=== PATIENT | male | born 1995 | race Caucasian/White ===

== ENCOUNTER 2021-12-21 12:39 | Emergency (ER) | payer OTHER, SELFPAY ==
--- NOTE | 2021-12-21 12:40 | ED.ABDPAIN ---
HPI - Abdominal Pain General Chief Complaint: Abdominal Pain Stated Complaint: Sever Abdo pain Time Seen by Provider: 12/21/21 12:41 Source: patient, family and RN notes reviewed History of Present Illness HPI narrative: Patient is a 26-year-old male who presents the urgent care with his girlfriend with complaints of severe lower abdominal pain that started 2 hours ago. Patient states that it has let up a lot since it first started . Patient states that he has had this in the past which resolved with Pepto. Patient states he did take Pepto without any relief. Patient states he does have issues with constipation and did take an enema and had a bowel movement this morning. Patient ate a cheese [place] this morning without any difficulty. Denies of any vomiting. States that he was feeling nauseous at first but denies of nausea at this time. Patient states that pain is worse when lying flat. No other acute complaints. Patient aware of the plan of care. Some parts of this dictation were generated by voice recognition software and may contain typographical and/or grammatical inaccuracies. Related Data Home Medications Medication Instructions Recorded Confirmed No Home Medications 12/21/21 12/21/21 Allergies Allergy/AdvReac Type Severity Reaction Status Date / Time No Known Allergies Allergy Verified 12/21/21 13:01 Review of Systems Review of Systems: CONSTITUTIONAL: Denies fever, chills, or sweats. EYES: Denies visual changes, redness, or discharge. ENT: Denies rhinorrhea, congestion, sore throat, or otalgia. CARDIOVASCULAR: Denies chest pain, palpitations, or edema. RESPIRATORY: Denies cough or dyspnea. GASTROINTESTINAL: Reports of severe lower abdominal pain GENITOURINARY: Denies dysuria or hematuria. SKIN: Denies rash or itching. MUSCULOSKELETAL: Denies back pain, joint pain, or myalgia. NEUROLOGIC: Denies headache, numbness, or weakness. All other systems reviewed are negative, except as documented in HPI. PMFSH Comments At the time of my signature, I reviewed and agree with the nursing past medical, surgical, social, and family history. There is no relevant family history pertinent to the patient complaint. Exam Narrative: GENERAL: This is a well-nourished, well-developed patient, in no apparent distress. HEAD: normocephalic, atraumatic. EYES: PERRL. Sclera clear/white. Vision is grossly intact. EARS: External ears normal, auditory canals clear and without drainage, TMs normal without perforation. Hearing grossly intact. NOSE: External nose normal with no obvious nasal discharge, nares without redness, no rhinorrhea. THROAT: Mucous membranes moist, posterior pharynx clear. NECK: Neck supple, non-tender without lymphadenopathy, masses or thyromegaly. CARDIOVASCULAR: Regular rate and rhythm without murmurs, gallops, or rubs. RESPIRATORY: Clear to auscultation. Breath sounds equal bilaterally. No wheezes, rales, or rhonchi. GASTROINTESTINAL: Abdomen soft, non-tender, nondistended. Bowel sounds are active. No hepato-splenomegaly, or palpable masses. No guarding. SKIN: warm, intact with no suspicious lesions or rash, good texture and turgor. NEURO: awake, alert, and oriented to person, place and time. There were no obvious focal neurologic abnormalities. EXTREMITIES: No clubbing, cyanosis, or edema. No joint tenderness, effusion, or edema noted. No calf tenderness. Negative Homans sign bilaterally. BACK: Nontender without deformity or crepitance. No flank tenderness. Course Course Level of Care: Express Care Visit Vital Signs Vital signs: Vital Signs Temperature 98.0 F 12/21/21 12:44 Pulse Rate 65 12/21/21 12:44 Respiratory Rate 20 12/21/21 12:44 Blood Pressure 143/77 H 12/21/21 12:44 Pulse Oximetry 100 12/21/21 12:44 Temperature 98.0 F 12/21/21 12:44 Pulse Rate 65 12/21/21 12:44 Respiratory Rate 20 12/21/21 12:44 Blood Pressure 143/77 H 12/21/21 12:44 Pulse Oximetry 100 12/21
[2021-12-21 12:44] VITALS: BP 143/77; PULSE 65; RESP 20; TEMP 36.7; O2SAT 100
== END 2021-12-21 13:13 | disposition home or self-care (01) ==
PROVIDERS: Emergency Provider Nurse Practitioner Family
DX: R10.32 Left lower quadrant pain (principal)
CPT/HCPCS: 81003; 99212; G0463

== ENCOUNTER 2023-08-12 13:11 | Emergency (ER) | payer OTHER, SELFPAY ==
[2023-08-12 13:20] VITALS: BP 149/69; PULSE 72; RESP 16; TEMP 37; O2SAT 98
--- NOTE | 2023-08-12 13:53 | ED.EYEPROB ---
HPI - Eye Problem General Chief complaint: Eye Problems Stated complaint: fb in left eye Source: patient Mode of arrival: ambulatory Limitations: no limitations History of Present Illness HPI Narrative: 27-year-old male presenting for complaint of left eye irritation. He states while using a saw he felt he got saw dust in the eye. He flushed eye using tap water but continues to feel foreign body sensation. Denies vision changes, drainage, itching, photophobia or headache. MD chief complaint: eye pain Related Data Allergies Allergy/AdvReac Type Severity Reaction Status Date / Time No Known Allergies Allergy Verified 12/21/21 13:01 Review of Systems Review of Systems: CONSTITUTIONAL: Denies body aches, fever, chills EYES:Endorses redness and pain to left eye; FB sensation, denies swelling, photophobia, visual changes ENT: Denies rhinorrhea, congestion, sore throat, or otalgia. CARDIOVASCULAR: Denies chest pain, palpitations RESPIRATORY: Denies cough or dyspnea. GASTROINTESTINAL: Denies abdominal pain, nausea, vomiting, or diarrhea. SKIN: Denies rash, itching, or wounds. MUSCULOSKELETAL: Denies back pain, joint pain, or myalgia. NEUROLOGIC: Denies headache, numbness, tingling, or weakness. All systems reviewed & are unremarkable except as noted in HPI and below PMFSH Past Medical History Medical History (Updated 08/12/23 @ 14:22 by Cathy Kirkland, STAN) No pertinent past medical history Comments At time of signature, I have reviewed and agree with nursing past medical, surgical, social and family history unless otherwise noted. Please see nursing chart for further information. There is no relevant family history pertinent to the presenting complaint Exam Narrative: GENERAL: Well-appearing HEAD: Normocephalic, atraumatic. EYES: Mild left conjunctival injection, No drainage or eye lid swelling. EOMI. Lid eversion shows no FB on exam. Morton lamp shows FB vs corneal abrasion barely visible to 3 o'clock over iris. ENT: Mucous membranes pink and moist. No rhinorrhea. TMs normal bilaterally. Throat normal. Uvula midline. CHEST: Clear to auscultation. HEART: Regular rate and rhythm. ABDOMEN: Soft, nontender, nondistended SKIN: Warm, dry, no rash. Normal skin turgor. NEURO: No focal deficits. Alert and oriented x3 PSYCH: Normal affect. Course Course Emergency Course: Patient is aware of diagnosis, understands and agrees to treatment plan. Anticipatory guidance given. Patient agrees to follow-up as directed and is aware of reasons to seek care at the emergency department. Portions of this record may have been created with voice recognition software Level of Care: Express Care Visit Vital Signs Vital signs: Vital Signs Temperature 98.6 F 08/12/23 13:20 Pulse Rate 72 08/12/23 13:20 Respiratory Rate 16 08/12/23 13:20 Blood Pressure 149/69 H 08/12/23 13:20 Pulse Oximetry 98 08/12/23 13:20 Oxygen Delivery Room Air 08/12/23 13:20 Temperature 98.6 F 08/12/23 13:20 Pulse Rate 72 08/12/23 13:20 Respiratory Rate 16 08/12/23 13:20 Blood Pressure 149/69 H 08/12/23 13:20 Pulse Oximetry 98 08/12/23 13:20 Oxygen Delivery Room Air 08/12/23 13:20 Procedures FB Removal Eye Foreign Body #1: Foreign Body Removal Date: 08/12/23 Location: eye (L) Topical anesthetic used: tetracaine Evidence of corneal penetration: Yes Procedure performed under: other ( Wood's lamp exam) Foreign Body Removal Narrative: left eye was irrigated using eye wash bottle. Anesthesia achieved with tetracaine. Less than pinpoint size uptake with Fluorescein c/w corneal abrasion vs FB over the iris at 3o'clock position. Unable to remove FB using saline soaked cotton tip swab. MDM - Eye Problem MDM Narrative Medical decision making narrative: patient tolerated with lamp exam well, Less than pinpoint size uptake with Fluorescein c/w cor
== END 2023-08-12 14:30 | disposition home or self-care (01) ==
PROVIDERS: Emergency Provider Nurse Practitioner Family
DX: T15.92XA Foreign body on external eye, part unspecified, left eye, initial encounter (principal); W44.9XXA Unspecified foreign body entering into or through a natural orifice, initial encounter
CPT/HCPCS: 65235; 99213; A9270; G0463

== ENCOUNTER 2023-11-28 12:03 | Emergency (ER) | payer SELFPAY | END 2023-11-28 12:12 | disposition left against medical advice (07) | LOC: EXPBETH 12:06 | PROVIDERS: Emergency Provider Nurse Practitioner | DX: Z53.21 Procedure and treatment not carried out due to patient leaving prior to being seen by health care provider (principal) | CPT/HCPCS: 99199 ==